=== PATIENT | female | born 1965 | race Caucasian/White ===

== ENCOUNTER 2018-03-06 07:09 | Observation (INO) | payer OTHER, MEDICARE ==
[~2018-03-06] VITALS: Ht 157.5 cm; Wt 93.4 kg
--- NOTE | ~2018-03-06 | CATHLAB ---
[facility] [place] [address] INVASIVE PROCEDURE REPORT Name: XIMENAMARIO Room #: 217-P [facility]#: [id number] Admission: 03/06/18 Attend Phys: Jez Long, Discharge: 03/07/18 Date of : 63 Date of Service: 03/07/18 1847 Report #: [id number] THIS REPORT FOR: //name// APPROVED REPORT Study performed: 03/06/2018 07:52:38 Patient Details Patient Status: Out-Patient Room #: The patient is a 52 year-old female Event Personnel Jez Long Order Entry Clerk, Makenzie BenitezR, Jamal Desai Amber Monitor, Mark Livingston receivable executive Performed Art Access - L femoral artery* 30738 Initial Mod Sed Same Phys/QHP Gr5y 150043 53124 Mod Sed Same Phys/QHP Ea 021057 Left Heart Cath w/or w/o Coronaries 7274426 [facility] Place w/wo Plasty Single CIRC 328811 Hemostasis w/ Mynx Aortogram Abdominal Peripheral Angio 789935 Indication Chest pain Procedure Narrative The patient was brought electively to the Cardiac Catheterization Laboratory and was prepped and draped in a sterile manner. The Left Groin^ was infiltrated with 1% Lidocaine subcutaneous anesthesia. A PINNACLE 6FR Sheath #[id number] sheath was inserted into the LFA^. Coronary angiography was performed using coronary diagnostic catheters. The right coronary system was accessed and visualized with a JR 4 catheter. The left coronary system was accessed and visualized with a JL 4 catheter. The left ventricle was accessed and visualized with a Pigtail catheter. Left ventriculogram was performed in RÍOS projection. An aortogram of the abdominal aorta was performed. Closure device was deployed with a 6 Fr Mynx. The patient tolerated the procedure well and there were no complications associated with the procedure. There was no hematoma. Intraoperative Conscious Sedation Sedation start time: 09:02 Case end Time: 09:53 Fentanyl 100 mcg Versed 2.[address] [address] INVASIVE PROCEDURE REPORT Name: MARIO BUENO Room #: 217-[facility]#: [id number] Admission: 03/06/18 Attend Phys: Jez Long, Discharge: 03/07/18 Date of : 63 Date of Service: 03/07/18 1847 Report #: [id number] Fluoro Time: 9.20 minutes Dose: DAP 8669.00 cGycm2 1096 mGy Contrast Type and Amount: Omnipaque 150 ml Hemodynamics The aortic pressure is 142/74 mmHg with a mean of 101 mmHg. The left ventricular pressure is 155/10 mmHg with a mean of mmHg. The left ventricular end diastolic pressure is 18 mmHg. PCI Technique Lesion Percutaneous coronary intervention was performed on the mid circumflex artery segment. A EBU 3.5 Guide Catheter was used to engage the ostium. A Luge Interventional Guidewire was used to cross the lesion. BALLOON DILATION A Balloon catheter Sprinter OTW 2.5 x 20 was inserted and inflated up to 10.00atm for 31seconds. Additional Inflation: 14.00atm for 27seconds. STENT DEPLOYMENT A drug-eluting stent Resolute Brandon OTW 2.5 x 22 was inserted and inflated up to 18.00atm for 33seconds. Conclusion #1 successful PTCA stent of the mid circumflex proximal OM with a 2.5 x 22 Brandon drug-eluting stent postdilated to 2.8 mm yielding 0% residual KATJA grade 3 flow. Third OM which jailed by the stent has a ostial lesion of 60-70% smaller in caliber #2 short left main mild disease giving rise to LAD and circumflex #3 LAD is mildly diseased and calcified 3040% mid vessel extensive the apex somewhat attenuated vessel #4 RCA is moderately diseased and calcified 5060% disease proximal to the mid vessel segment. Mild disease in the PDA and NEGRITO anatomically dominant but smaller in distribution. #5 SVG to PDA occluded #6 SVG to circumflex OM occluded #7 GRENEE was injected this was never taken down not utilized #8 normal left ventricular size with moderate global hypokinesis more severely hypokinetic in the mid and distal inferior wall EF 40-45% Recommendations and plan: Continue aggressive risk factor [address] [address] INVASIVE PROCEDURE REPORT Name: MARIO BUENO Room #: 217-P [facility] ..#: [id number] Admission: 03/06/18 Attend Phys: Jez Long, Discharge: 03/07/18 Date of : 63 Date of Service: 03/07/181846 Report #: [id number] modification dual antiplatelet therapy to continue indefinitely. Transfer to [facility] in stable condition <ELECTRONICALLY SIGNED> By: Jez Lnog MD, FACC 03/07/181846 46 46 Jez Long MD, FACC /INF
--- NOTE | ~2018-03-06 | EKG ---
[address] [address] ELECTROCARDIOGRAM REPORT Name: MARIO BUENO Room #: 217-[facility]#: [id number] Admission: 03/06/18 Attend Phys: Jez Long MD, Discharge: Date of : 63 Report #: [id number] THIS REPORT FOR: //name// [facility] Test Date: 2018-03-06 Test Time: 12:38:11 Pat Name: MARIO BUENO Department: Room: 217 Gender: F Wedger: Jesse MCPHERSON : 1965 Requested By: Jez Long Order Number: [id number] MD: Michael Myers Measurements Intervals [place] Rate: 76 P: 33 [place]: 167 QRS: 15 QRSD: 108 T: 108 QT: 392 QTc: 441 Interpretive Statements Sinus rhythm Inferior infarct, old Nonspecific T wave abnormality Compared to ECG 05/05/2011 18:29:33 No significant change was found Electronically Signed On 03-07-2018 8:39:31 CDT by Michael Myers [email or web address] <ELECTRONICALLY SIGNED> By: Michael Myers MD, [facility] 03/07/18 0839 1238 1238 Michael Myers MD, [facility] /EPI
--- NOTE | ~2018-03-06 | EKG ---
[address] [address] ELECTROCARDIOGRAM REPORT Name: MARIO BUENO Room #: 217-[facility]#: [id number] Admission: 03/06/18 Attend Phys: Jez Long MD, Discharge: 03/07/18 Date of : 63 Report #: [id number] THIS REPORT FOR: //name// [facility] Test Date: 2018-03-07 Test Time: 07:22:36 Pat Name: MARIO BUENO Department: Room: [facility] Gender: F Blood Bank Credit Clerk: : 1965 Requested By: Violet Winter Order Number: [id number] MD: Chris Ng Measurements Intervals [place] Rate: 73 P: 52 MD: 180 QRS: 15 QRSD: 112 T: 118 QT: 395 QTc: 436 Interpretive Statements Sinus rhythm Inferior infarct, old Lateral leads are also involved Compared to ECG 05/05/2011 18:29:33 Sinus tachycardia no longer present Ventricular premature complex(es) no longer present Myocardial infarct finding still present Electronically Signed On 03-08-2018 8:14:34 CDT by Chris Ng [email or web address] <ELECTRONICALLY SIGNED> By: Chris Ng MD 03/08/18813 1 1 Chris Ng MD /EPI
--- NOTE | ~2018-03-06 | D ---
[facility] [place] [address] DISCHARGE SUMMARY Name: MARIO BUENO Room #: 217-P [facility] Whit Adams#: [id number] Admission: 03/06/18 Attend Phys: Jez Long MD, Discharge: 03/07/18 Date of : 63 Report #: [id number] THIS REPORT FOR: //name// CC: FAM unknown Jez ZHAO DATE OF SERVICE: 03/07/2018 HOSPITAL COURSE: The patient is a 52-year-old female who was admitted with accelerating anginal symptoms. Subsequently, she was taken to the catheterization lab. There was a long lesion in the circumflex OM, with a moderate area of distribution. This stent extended from the mid circumflex into the proximal OM. Placement of a 2.5 x 22 Brandon drug-eluting stent, postdilated to 2.75 mm, yielding 0% residual and KATJA grade 3 flow. The red devil LAD had mild disease. There was moderate disease in the red devil right. She had had prior bypass surgery. All grafts were occluded and the GERENE was injected, but it had never been utilized. There may have been an SVG to the PDA and an OM. These were occluded. Ejection fraction 40% range. She will be discharged to home. She is up and ambulating. She feels well. There are no groin issues. MEDICATIONS: Dual antiplatelet therapy will have to continue indefinitely. Aspirin and Plavix. The only new medication is losartan 25 mg for renal protection from the diabetes. Her insulin as directed. She is off metformin now. Metoprolol 50, omeprazole and rosuvastatin 40. FOLLOWUP: I have asked her to follow up with primary, Dr. Susan Zhao, who she sees and Dr. Chavez in [place], who she sees for Endocrinology. She is apparently intolerant of SGLT-2 because of recurrent yeast infections. DISCHARGE DIAGNOSES: 1. Coronary artery disease with successful PTCA stent of large circumflex OM branch. Moderate left anterior descending and right coronary artery disease. 2. Mild ischemic cardiomyopathy of 40% range. 3. Hypertension. 4. Hypercholesterolemia. 5. Diabetes. 6. Peripheral vascular disease. DISCHARGE INSTRUCTIONS: No lifting for 48 hours or lying in [facility], [facility] or [facility] [address] [place] [address] DISCHARGE SUMMARY Name: MARIO BUENO Room #: 217-P [facility] Whit Adams#: [id number] Admission: 03/06/18 Attend Phys: Jez Long MD, Discharge: 03/07/18 Date of : 63 Report #: [id number] pacheco for a week. An 1800 ADA diet. Followup scheduled in 3 months in my office. No MRI or dental work for 3 months. <ELECTRONICALLY SIGNED> By: Jez Long MD, [facility] 03/08/18 0906 0855 1207 Jez Long MD, FACC /nt
--- NOTE | ~2018-03-06 | EKG ---
[address] [address] ELECTROCARDIOGRAM REPORT Name: MARIO BUENO Room #: 217-[facility]#: [id number] Admission: 03/06/18 Attend Phys: Jez Long MD, Discharge: Date of : 63 Report #: [id number] THIS REPORT FOR: //name// [facility] Test Date: 2018-03-06 Test Time: 11:54:35 Pat Name: MARIO BUENO Department: Room: 217 Gender: F Gm Video: Jesse MCPHERSON : 1965 Requested By: Violet Winter Order Number: [id number] MD: Michael Myers Measurements Intervals [place] Rate: 87 P: 25 [place]: 164 QRS: 21 QRSD: 65 T: 118 QT: 439 QTc: 528 Interpretive Statements Sinus rhythm Possible Inferior infarct, old Nonspecific ST and T wave abnormality Prolonged QT interval Compared to ECG 05/05/2011 18:29:33 Prolonged QT interval now present Sinus tachycardia no longer present Ventricular premature complex(es) no longer present Electronically Signed On 03-07-2018 8:39:14 CDT by Michael Myers [email or web address] <ELECTRONICALLY SIGNED> By: Michael Myers MD, FAC 03/07/18 0839 1154 1154 Michael Myers MD, FAC /EPI
[~2018-03-06 07:09] MED LIST: ADULT LOW DOSE81 MG PO; ALEVE220 M1 PO; AMARYL4 MG PO; AMBIEN 10 MG TA10 MG PO; AMOXICILLIN 50500 M1 PO; ASPIRIN EC325 M1 PO; B-121000 MCG PO; CARISOPRODOL 3350 MG PO; CRESTOR10 MG PO; CRESTOR40 MG PO; CRESTOR5 MG PO; CYMBALTA30 MG PO; CYMBALTA60 MG PO; DESYREL50 MG PO; FENOFIBRATE130 MG PO; FENTANYL PA50 MCG/HR TP; FLEXERIL PO; FLONASE 0.05%50 MCG NASAL; GLUCOPHAGE500 MG PO; GRALISE600 MG PO; HYDROCODON-ACE1 EAC5 PO; INVOKANA300 MG PO; IRON325 OR; KEFLEX500 MG OR; LASIX 40 MG TAB40 M1 OR; LEVEMIR SUBQ; LISINOPRIL5 MG PO; LOPRESSOR25 PO; LOPRESSOR50 PO; NEURONTIN 300300 M1 PO; NITROGLYCERIN0.4 MG SUBLING; NORCO 7.5-3251 EACH PO; NOVOLOG100 UNIT/1 SUBQ; PERCOCET 10-321 EACH OR; PERCOCET 5-3251 EACH PO; PLAVIX 75 MG TA75 M1 PO; PRILOSEC 20 MG20 MG PO; PRILOSEC40 MG PO; PROBIOTIC1 EAC1 PO; SENOKOT-S1 TA1 OR; SLOW-MAG64 MG PO; TRAZODONE HCL100 MG PO; TRAZODONE PO; TRILIPIX135 MG PO; UNICOMPLEX M TA1 TA1 PO; VICODIN; VITAMIN D1000 UNI1 PO
[2018-03-06 07:46] VITALS: BP 149/82
[2018-03-06 07:51] LABS: HEMOGLOBIN 13.7 gm/dL (12.0-15.0); MCH 25.8 pg (26.0-34.0); MCHC 33.5 g/dL (28.0-37.0); RBC 5.32 mil/uL (4.20-5.00); RDW 18.1 % (10.5-14.5); WBC 5.5 thou/uL (4.0-11.0)
[2018-03-06 07:59] LABS: CALCIUM 9.1 mg/dL (8.5-10.1); CREATININE 0.9 mg/dL (0.6-1.0)
[2018-03-06 08:00] LABS: POTASSIUM 3.9 mmol/L (3.5-5.1)
[2018-03-06 08:03] LABS: PROTIME 10.6 Seconds (9.3-11.4)
[2018-03-06 10:40] VITALS: BP 137/78
[2018-03-06] MEDS ORDERED: LEVEMIR SUBQ (11:50)
[2018-03-06 16:20] VITALS: BP 119/67
[2018-03-06 20:31] VITALS: BP 136/71
[2018-03-07 00:16] VITALS: BP 120/70
[2018-03-07 03:21] LABS: HEMOGLOBIN 12.5 gm/dL (12.0-15.0); MCH 24.8 pg (26.0-34.0); MCV 77.7 fL (80.0-100.0); RBC 5.02 mil/uL (4.20-5.00); RDW 18.4 % (10.5-14.5); WBC 4.8 thou/uL (4.0-11.0)
[2018-03-07 03:41] LABS: ALBUMIN 2.9 g/dL (3.4-5.0); CALCIUM 9.2 mg/dL (8.5-10.1); CREATININE 0.8 mg/dL (0.6-1.0); POTASSIUM 3.8 mmol/L (3.5-5.1); TOTAL BILIRUBIN 0.3 mg/dL (<0.1-1.0); TOTAL PROTEIN 6.8 g/dL (6.4-8.2); TROPONIN-I 0.13 ng/mL (<0.06)
[2018-03-07 04:44] VITALS: BP 123/52
[2018-03-07] MEDS ORDERED: COZAAR 25 MG TA25 M1 PO (08:23)
[2018-03-07 08:39] VITALS: BP 126/69
[2018-03-07 08:43] VITALS: BP 123/52
== END 2018-03-07 09:45 | disposition home or self-care (01) ==
LOC: CATH 07:09 → 2N 10:38 → CATH 13:34 → ENTRNSPT 03-07 09:30 → EDTRNSPTSTS 03-07 09:36 → 2N 03-07 09:45 → CMPTRNSPT 03-07 09:52
PROVIDERS: Internal Medicine Cardiovascular Disease; Nurse Practitioner Gerontology
DX: I25.10 Atherosclerotic heart disease of native coronary artery without angina pectoris (principal); I42.9 Cardiomyopathy, unspecified; I25.5 Ischemic cardiomyopathy; I10 Essential (primary) hypertension; E78.00 Pure hypercholesterolemia, unspecified; E11.9 Type 2 diabetes mellitus without complications; I73.9 Peripheral vascular disease, unspecified

== ENCOUNTER 2019-05-23 10:11 | Outpatient (CLI) | payer OTHER, MEDICARE ==
[2019-05-23] VITALS (7 sets, daily range): BP systolic 125–139; BP diastolic 52–77
[~2019-05-23] VITALS: Ht 157.5 cm; Wt 93.0 kg
--- NOTE | ~2019-05-23 | D ---
[facility] [place] [address] DISCHARGE SUMMARY Name: MARIO ROJAS Room #: 213-P [facility] M.R.#: [id number] Admission: 05/23/19 Attend Phys: Jez Long MD, Discharge: Date of : 63 Report #: [id number] THIS REPORT FOR: //name// CC: FAM [facility]: The patient is a 53-year-old female. She was admitted for mesenteric angiogram and cardiac catheterization. Dr. Mccracken had performed the mesenteric angiogram. No indication for intervention of mesenteric or renal artery. Cardiac catheterization revealed a long 60-70% proximal RCA lesion and a midvessel lesion of 90%, which had significantly progressed. There were prior grafts to OM1, OM2, and to a PDA/NEGRITO. These were occluded. The [place] system was moderately diseased and patent LAD and circumflex. I intervened to the mid RCA lesion with placement of a 2.75 x 18 Xience Saniya medicated stent. The patient tolerated this well without any hemodynamic compromise. She will be discharged to home on her aspirin and Plavix; will remain the same insulin NovoLog 60 units at night, Levemir 30 units, Imdur 30, metoprolol tartrate 50 b.i.d., olmesartan 20, omeprazole 40, rosuvastatin 40, hydrocodone 10/325 q. 4 hours p.r.n. and sublingual nitro. Her laboratory work is unremarkable this morning. Troponin 0.42. This would the procedural. Creatinine 1.0, potassium 3.9, sugar was 350 this morning, H and H 11 and 34. DISCHARGE DIAGNOSES: 1. Coronary artery disease with successful percutaneous transluminal coronary angioplasty stent of the mid RCA, moderate proximal RCA disease, will follow. Mild LAD and circumflex disease. Prior grafts to OM1, OM2, occluded. A sequential and SVG to NEGRITO/PDA occluded. Previously noted LV function is nearly normal. 2. Diabetes. 3. Peripheral vascular disease. 4. Hypertension. 5. Hypercholesterolemia. 6. Chronic pain. DIET: A diabetic diet. FOLLOWUP: No lifting for 48 hours. No lying in tub, Jacuzzi or pacheco for a week. Followup will be scheduled in 3 months in my office with myself. Thank you for asking me to assist in the care of this patient. By: 0729 0819 /nt
[~2019-05-23 10:11] MED LIST changes: +COZAAR 25 MG TA25 M1 PO; +LEVEMIR FL100 UNIT/2 SUBQ
[2019-05-23] MEDS ORDERED: BENICAR20 MG PO (11:56)
[2019-05-23] MEDS ORDERED: ISOSORBIDE MONO30 M1 PO (11:57)
--- NOTE | 2019-05-23 15:06 | EKG ---
[place] [address] [employer] [facility] [employer] [address] ELECTROCARDIOGRAM REPORT Name: MARIO ROJAS [id number] Admission: 05/23/19 Attend Phys: Jez Long MD, Discharge: Date of : 63 Report #: [id number] THIS REPORT FOR: //name// [facility] Test Date: 2019-05-23 Test Time: 11:21:50 Pat Name: MARIO ROJAS Department: Room: Gender: F Rubber Roller Grinder Operator: PADMINI : 1965 Requested By: Jez Long Order Number: [id number] MD: Chris Ng Measurements Intervals [place] Rate: 63 P: 36 [place]: 191 QRS: 23 QRSD: 109 T: 59 QT: 398 QTc: 408 Interpretive Statements Sinus rhythm Inferior infarct, old Compared to ECG 03/07/2018 07:22:36 No significant changes Electronically Signed On 05-23-2019 15:05:34 HAMMER REPAIRER by Chris Ng [email or web address] <ELECTRONICALLY SIGNED> By: Chris Ng MD 05/23/19 1505 20 20 Chris Ng MD /BHUPENDRA
--- NOTE | 2019-05-23 19:49 | NUR ---
PATIENT ARRIVED TO THE UNIT WITH IR STAFF AROUND 1800. REPORT GIVEN, AND GROIN SITE CHECKED. SITE IS IN TACT AND CLEAN.. PATIENT COMPLAINING OF PAIN AND VOMMITING. NO ORDERS GIVEN. DR. PHILLIPS PAGE. CLINICAL NUTRITIONIST DOCTOR RETURNING PAGE. NO ORDERS RECIEVED. STATING " I DONT KNOW THE PATIENT I WILL HAVE TO TRY TO CALL AKASH." PATIENT UPDATED AND GIVEN CRACKERS FOR NAUSEA.
[2019-05-23] MEDS ORDERED: LANTUS SUBQ (20:08)
--- NOTE | 2019-05-23 20:18 | CATHLAB ---
[facility] [address] [place] [address] INVASIVE PROCEDURE REPORT Name: MARIO ROJASN Room #: 213-P [facility]#: [id number] Admission: 05/23/19 Attend Phys: Jez Long, Discharge: Date of : 63 Report #: [id number] THIS REPORT FOR: //name// APPROVED REPORT Study performed: 05/23/2019 15:07:38 Patient Details Patient Status: Out-Patient Room #: The patient is a 53 year-old female Event Personnel Jez Long Passenger Attendant, Nessa Laurent RN RN, Albina Garcia RTMiguel Power David Monitor Procedures Performed Left Heart Cath Coronaries, Bypass Grafts 7993823 [facility] Place w/wo Plasty Single RCA 080204 Indication Chest pain Procedure Narrative A SHEATH BRITE-TIP 6F X 11CM ([id number]) sheath was inserted into the LFA^. Coronary angiography was performed using coronary diagnostic catheters. The right coronary system was accessed and visualized with a JR4 catheter. The left coronary system was accessed and visualized with a 6FR JL4 #[id number] catheter. The left ventricle was accessed and visualized with a PIGTAIL catheter. Left ventricular/Aortic Valve gradient assessed via catheter pullback. Left ventriculogram was performed in 30 degree projection. Closure device was deployed with a 6 Fr MYNXGRIP 6/7F #[id number]. The patient tolerated the procedure well and there were no complications associated with the procedure. There was no hematoma. Intraoperative Conscious Sedation Sedation start time: 16.15 Case end Time: 17.13 Fentanyl 100.0 mcg Versed 1 mg Fluoro Time: 3.38 minutes Dose: DAP 01774.00 cGycm2 1310 mGy Contrast Type and Amount: Visipaque 92 ml Hemodynamics [facility] [place] [address] INVASIVE PROCEDURE REPORT Name: SKIPDINAHMARIOEVELYN SIERRA Room #: 213-P [facility]..#: [id number] Admission: 05/23/19 Attend Phys: Jez MPierre BorgesMercedes, Discharge: Date of : 63 Report #: [id number] The aortic pressure is 147/77 mmHg with a mean of 105 mmHg. The left ventricular pressure is 158/17 mmHg with a mean of mmHg. The left ventricular end diastolic pressure is 28 mmHg. There was no gradient across the aortic valve upon pullback. Pullback from the left ventricle to the aorta revealed no gradient across the aortic valve. PCI Technique Lesion Percutaneous coronary intervention was performed on the mid right coronary artery. A LAUNCHER 6FR JR 4 #[id number] Guide Catheter was used to engage the ostium. A Luge Wire .014 x 182CM #[id number] Interventional Guidewire was used to cross the lesion. BALLOON DILATION A Balloon catheter Sprinter OTW 2.5 x 10 #[id number] was inserted and inflated up to 10.00atm for 23seconds. STENT DEPLOYMENT A drug-eluting stent XIENCE NADIRA RX 2.75 X 18 #[id number] was inserted and inflated up to 10.00atm for 20seconds. Additional Inflation: 12.00atm for 9seconds. Conclusion #1 successful PTCA stent of a high-grade mid RCA lesion dominant vessel 95% to 0%. Placement of a 2.75 x 18 see era drug-eluting stent. #2 LAD has a separate ostial takeoff. No significant left main existing LAD is mild diseases and extends to the apex. #3 circumflex OM nondominant with moderate distal disease 70-80% distal lesion filling a small OM the second OM is large mildly diseased #4 SVG which was a sequential OM1 OM 2 is occluded. The first OM branches faintly filled via the muscogee system. #5 SVG to PDA is occluded it was a sequential graft to PDA NEGRITO. These vessels are small and diffusely disease and remains patent through the mus[place] right system improvement in flow postintervention is noted distally. #6 GREENE was injected. This was not utilized it appears due to wide patency of LAD at time of bypass. #7 normal left ventricular size and subtle inferior wall hypokinesis EF 50% range. Recommendations and plan: Continue aggressive risk factor modification. Continue now dual antiplatelet therapy. Patient hemodynamically stable pain-free transfer to CCU to follow post [facility] [address] [place] [address] INVASIVE PROCEDURE REPORT Name: MARIO ROJASN Room #: 213-P [facility] M.RPierre#: [id number] Admission: 05/23/19 Attend Phys: Jez Long, Discharge: Date of : 63 Report #: [id number] coronary stent protocol. Patient had mesenteric diagnostic evaluation see Dr. Mccracken's note. <ELECTRONICALLY SIGNED> By: Jez Long MD, FACC 05/23/192017 17 17 Jez Long MD, FACC /INF
--- NOTE | 2019-05-23 22:42 | NUR ---
PT ADMITTED FROM IR.A/OX4.PT POST IR PROCEDURE AND CADIAC NASREEN WT FELISHA STENT PLACED TO RCA.LEFT GROIN W/O HEMATOMA OR ACTIVE BLEEDING.VSS.SR ON MONITOR.C/O PAIN GENERALIZED.DR BUSTOS CONSULTED AND ORDERS GIVEN.ALSO C/O NAUSEA THAT WAS CONTROLLED WITH ZOFRAN.PT OFF BEDREST FROM 2100,AMBULATED TO BR W/STEADY GAIT.LEFT GROIN REMAINS INTACT.ADMISSION ASSESSMENT COMPLETED.IVF INFUSING.PT DENIES ANY OTHER ISSUES AT THIS TIME. WILL CONT TO MONITOR PER POC.
[2019-05-24 00:27] VITALS: BP 140/69
[2019-05-24 04:37] LABS: HEMATOCRIT 34.5 % (37.0-47.0); MCH 25.2 pg (26.0-34.0); MCV 78.8 fL (80.0-100.0); RBC 4.38 mil/uL (4.20-5.00); RDW 18.3 % (10.5-14.5); WBC 5.9 thou/uL (4.0-11.0)
[2019-05-24 04:45] VITALS: BP 113/53
[2019-05-24 05:12] LABS: CALCIUM 8.8 mg/dL (8.5-10.1); POTASSIUM 3.9 mmol/L (3.5-5.1); TROPONIN-I 0.42 ng/mL (<0.06)
[2019-05-24 05:35] VITALS: BP 135/78
--- NOTE | 2019-05-24 05:43 | NUR ---
PT RESTED WELL THROUGH THE NOC.UP INDEPENDENTLY TO BATHROOM.RIGHT GROIN DRESSING CDI.GENERALIZED PAIN CONTROLLED WITH PAIN MEDS.NAUSEA RESOLVED.POC IS TO DISCHARGE THIS AM.WILL CONT TO MONITOR PER POC.
[2019-05-24 08:44] VITALS: BP 122/59
[2019-05-24 09:46] VITALS: BP 122/59
== END 2019-05-24 10:40 | disposition home or self-care (01) ==
LOC: CATH 10:11 → 2N 17:39 → CATH 19:43
PROVIDERS: Internal Medicine Cardiovascular Disease
DX: K55.1 Chronic vascular disorders of intestine (principal); R10.9 Unspecified abdominal pain; I73.89 Other specified peripheral vascular diseases; I10 Essential (primary) hypertension; I70.1 Atherosclerosis of renal artery; I25.10 Atherosclerotic heart disease of native coronary artery without angina pectoris; Z79.899 Other long term (current) drug therapy
CPT/HCPCS: 10081

== ENCOUNTER → 2019-06-05 | Outpatient (CLI) | payer OTHER, MEDICARE ==
[~2019-06-05] MED LIST changes: +BENICAR20 MG PO; +ISOSORBIDE MONO30 M1 PO; +LANTUS SUBQ
== END ==
LOC: SJCVCIMAG 14:06
DX: M79.81 Nontraumatic hematoma of soft tissue (principal); I25.10 Atherosclerotic heart disease of native coronary artery without angina pectoris; R10.30 Lower abdominal pain, unspecified; Z87.891 Personal history of nicotine dependence; Z95.1 Presence of aortocoronary bypass graft

== ENCOUNTER → 2019-08-25 | Outpatient (CLI) | payer OTHER, MEDICARE | LOC: SJCVC 14:18 | PROVIDERS: ATTEND Internal Medicine Cardiovascular Disease | DX: I25.10 Atherosclerotic heart disease of native coronary artery without angina pectoris (principal); R94.31 Abnormal electrocardiogram [ECG] [EKG]; I10 Essential (primary) hypertension; E78.1 Pure hyperglyceridemia; I73.9 Peripheral vascular disease, unspecified; I71.4 Abdominal aortic aneurysm, without rupture; I25.2 Old myocardial infarction; Z95.1 Presence of aortocoronary bypass graft; E11.9 Type 2 diabetes mellitus without complications; Z90.49 Acquired absence of other specified parts of digestive tract; Z79.899 Other long term (current) drug therapy; Z87.891 Personal history of nicotine dependence ==

== ENCOUNTER → 2019-12-22 | Outpatient (CLI) | payer OTHER, MEDICARE | LOC: SJCVCIMAG 14:13 → SJCVC 14:13 | PROVIDERS: ATTEND Internal Medicine Cardiovascular Disease | DX: I70.201 Unspecified atherosclerosis of native arteries of extremities, right leg (principal); R94.31 Abnormal electrocardiogram [ECG] [EKG]; I44.0 Atrioventricular block, first degree; I25.10 Atherosclerotic heart disease of native coronary artery without angina pectoris; I10 Essential (primary) hypertension; E78.1 Pure hyperglyceridemia; I71.4 Abdominal aortic aneurysm, without rupture; E11.9 Type 2 diabetes mellitus without complications; E78.00 Pure hypercholesterolemia, unspecified; Z95.1 Presence of aortocoronary bypass graft; Z79.4 Long term (current) use of insulin; Z79.899 Other long term (current) drug therapy; Z87.891 Personal history of nicotine dependence ==

== ENCOUNTER → 2020-01-05 | Outpatient (CLI) | payer OTHER, MEDICARE ==
[2020-01-05 10:56] LABS: CALCIUM 9.5 mg/dL (8.5-10.1); CREATININE 0.9 mg/dL (0.6-1.0)
== END ==
LOC: CAT 09:41
PROVIDERS: ATTEND Internal Medicine Cardiovascular Disease
DX: R16.2 Hepatomegaly with splenomegaly, not elsewhere classified (principal); I71.4 Abdominal aortic aneurysm, without rupture; N83.8 Other noninflammatory disorders of ovary, fallopian tube and broad ligament

== ENCOUNTER → 2020-02-25 | Outpatient (CLI) | payer OTHER, MEDICARE | LOC: MRI 10:08 | DX: M47.817 Spondylosis without myelopathy or radiculopathy, lumbosacral region (principal); M48.07 Spinal stenosis, lumbosacral region ==

== ENCOUNTER → 2020-05-18 | Outpatient (CLI) | payer OTHER, MEDICARE | LOC: SJCVCIMAG 05-03 08:44 | PROVIDERS: ATTEND Internal Medicine Cardiovascular Disease | DX: I25.10 Atherosclerotic heart disease of native coronary artery without angina pectoris (principal); R00.0 Tachycardia, unspecified; I49.3 Ventricular premature depolarization; E78.5 Hyperlipidemia, unspecified; E11.9 Type 2 diabetes mellitus without complications; I10 Essential (primary) hypertension; Z79.899 Other long term (current) drug therapy; Z87.891 Personal history of nicotine dependence ==

== ENCOUNTER → 2020-08-23 | Outpatient (CLI) | payer OTHER, MEDICARE | LOC: SJCVC 09:57 | PROVIDERS: ATTEND Internal Medicine Cardiovascular Disease | DX: I25.10 Atherosclerotic heart disease of native coronary artery without angina pectoris (principal); I10 Essential (primary) hypertension; E78.00 Pure hypercholesterolemia, unspecified; E11.9 Type 2 diabetes mellitus without complications; I71.4 Abdominal aortic aneurysm, without rupture; I70.201 Unspecified atherosclerosis of native arteries of extremities, right leg; E78.1 Pure hyperglyceridemia; I77.9 Disorder of arteries and arterioles, unspecified; Z95.828 Presence of other vascular implants and grafts; Z79.82 Long term (current) use of aspirin; Z79.899 Other long term (current) drug therapy ==

== ENCOUNTER → 2021-02-23 | Outpatient (CLI) | payer OTHER, MEDICARE | LOC: SJCVCIMAG 07:31 | PROVIDERS: ATTEND Internal Medicine Cardiovascular Disease | DX: R94.31 Abnormal electrocardiogram [ECG] [EKG] (principal); I65.23 Occlusion and stenosis of bilateral carotid arteries; I25.10 Atherosclerotic heart disease of native coronary artery without angina pectoris; R07.89 Other chest pain; I10 Essential (primary) hypertension; E78.00 Pure hypercholesterolemia, unspecified; I70.201 Unspecified atherosclerosis of native arteries of extremities, right leg; E78.1 Pure hyperglyceridemia; E11.9 Type 2 diabetes mellitus without complications; I77.9 Disorder of arteries and arterioles, unspecified; I71.4 Abdominal aortic aneurysm, without rupture; Z79.4 Long term (current) use of insulin; Z95.1 Presence of aortocoronary bypass graft; Z95.828 Presence of other vascular implants and grafts; Z79.82 Long term (current) use of aspirin; Z79.899 Other long term (current) drug therapy; Z87.891 Personal history of nicotine dependence; Z88.5 Allergy status to narcotic agent; Z88.2 Allergy status to sulfonamides; Z88.8 Allergy status to other drugs, medicaments and biological substances ==

== ENCOUNTER → 2021-03-03 | Outpatient (CLI) | payer OTHER, MEDICARE | LOC: SJCVCIMAG 10:36 | PROVIDERS: ATTEND Internal Medicine Cardiovascular Disease | DX: R07.9 Chest pain, unspecified (principal); I25.10 Atherosclerotic heart disease of native coronary artery without angina pectoris; I25.2 Old myocardial infarction ==